=== PATIENT | female | born 1940 | race Caucasian/White ===

== ENCOUNTER 2017-10-10 11:22 | Emergency (ER) | payer OTHER ==
[~2017-10-10] VITALS: Ht 160 cm; Wt 81.7 kg
[~2017-10-10 11:22] MED LIST: ADULT LOW DOSE81 MG; BACTRIM DS TAB1 EACH PO; BENICAR40 MG; CHROMIUM; FISH OIL; FISH OIL 1,001000 MG PO; HCTZ PO; HYDROCHLOROTH12.5 MG PO; K-DUR 20 MEQ T20 MEQ PO; LOPRESSOR 50 MG50 M1 PO; LOSARTAN POTASS50 MG PO; MAGNES; MAGNESIUM250 M1 PO; POTASSIUM20; PROPAFENONE 15150 MG PO; PROPAFENONE HC325 MG PO; SIMVASTATIN20 MG PO; TOPROL XL50 MG; VITAMIN D1000 UNI1 PO; VITAMINC500; VITAMINC500 PO; ZOCOR 20 MG TAB20 M1
[2017-10-10] MEDS ORDERED: ELIQUIS5 MG PO (11:32)
[2017-10-10 11:46] LABS: ABSOLUTE BASOPHILS 0.1 thou/uL (0.0-0.2); ABSOLUTE EOSINOPHILS 0.1 thou/uL (0.0-0.7); ABSOLUTE LYMPHOCYTES 4.2 thou/uL (0.8-5.3); ABSOLUTE MONOCYTES 1.2 thou/uL (0.0-1.2); ABSOLUTE NEUTROPHILS 8.1 thou/uL (1.6-8.1); BASOPHILS 0.7 %; EOSINOPHILS 0.6 %; HEMATOCRIT 45.3 % (37.0-47.0); HEMOGLOBIN 14.8 gm/dL (12.0-15.0); LYMPHOCYTES 30.8 %; MCH 29.7 pg (26.0-34.0); MCHC 32.6 g/dL (28.0-37.0); MCV 91.1 fL (80.0-100.0); MONOCYTES 8.7 %; MPV 8.5 fl. (7.2-11.1); NUCLEATED RBCS 0 /100WBC; PLATELET COUNT* 290 thou/uL (150-400); POLYS 59.2 %; RBC 4.97 mil/uL (4.20-5.00); RDW-CV 14.1 % (10.5-14.5); WBC 13.6 thou/uL (4.0-11.0)
[2017-10-10 11:57] LABS: ANION GAP 8 mmol/L (7-16); BUN 22 mg/dL (7-18); CHLORIDE 106 mmol/L (98-107); CO2 29 mmol/L (21-32); CREATININE 1.2 mg/dL (0.6-1.3); GLUCOSE 131 mg/dL (70-99); POTASSIUM 3.9 mmol/L (3.5-5.1); SODIUM 143 mmol/L (136-145)
[2017-10-10 12:00] LABS: APTT 30.3 Seconds (25.0-31.3); PROTIME 9.9 Seconds (9.20-11.50)
[2017-10-10 12:16] LABS: ALBUMIN 3.6 g/dL (3.4-5.0); ALKALINE PHOSPHATASE 98 U/L (46-116); CK-MB MASS 0.6 ng/mL (<0.5-3.6); LIPASE 341 U/L (73-393); NT-PRO BRAIN NAT PEPTIDE 1364 pg/mL (<300); SGOT 17 U/L (15-37); SGPT 25 U/L (30-65); TOTAL BILIRUBIN 0.4 mg/dL (<0.1-1.0); TOTAL PROTEIN 7.2 g/dL (6.4-8.2); TROPONIN-I LEVEL <0.06 ng/mL (<0.06)
[2017-10-10 13:46] VITALS: BP 140/86
--- NOTE | 2017-10-11 16:37 | EKG ---
[place] [address] ELECTROCARDIOGRAM REPORT Name: JUNO LOPEZ Room: [facility]#: [id number] Admission: 10/10/17 Attend Phys: Discharge: 10/10/17 Date of : 44 Report #: [id number] THIS REPORT FOR: //name// [facility] ED Test Date: 2017-10-10 Test Time: 11:31:07 Pat Name: JUNO LOPEZ Department: Room: Gender: F [employer]: : 1940 Requested By: Michael Magdaleno Order Number: [id number] MD: Tapan Carrasco Measurements Intervals [place] Rate: 112 P: MT: QRS: 50 QRSD: 89 T: -15 QT: 320 QTc: 437 Interpretive Statements Atrial fibrillation Nonspecific repol abnormality, diffuse leads Compared to ECG 05/13/2017 21:26:55 Sinus rhythm no longer present Electronically Signed On 10-11-2017 16:37:45 CDT by Tapan Carrasco [email or web address] <ELECTRONICALLY SIGNED> By: Tapan Carrasco MD, [facility] 10/11/17 1637 113 30 Tapan Carrasco MD, FACC /EPI
== END 2017-10-10 13:51 | disposition home or self-care (01) ==
LOC: M.ERS 11:22
PROVIDERS: Family Medicine
DX: I48.91 Unspecified atrial fibrillation (principal); E78.00 Pure hypercholesterolemia, unspecified; I10 Essential (primary) hypertension; Z88.5 Allergy status to narcotic agent; Z88.8 Allergy status to other drugs, medicaments and biological substances; Z90.49 Acquired absence of other specified parts of digestive tract; Z90.710 Acquired absence of both cervix and uterus